=== PATIENT | female | born 1955 | race Caucasian/White ===

== ENCOUNTER 2020-03-26 05:26 | Day surgery (SDC) | payer MEDICARE, OTHER ==
[2020-03-25 08:52] LABS: COVID AG,FIA SOURCE NASOPHARYNGEAL
[~2020-03-26] VITALS: Ht 154.9 cm; Wt 72.7 kg
[~2020-03-26 05:26] MED LIST: CYCLOPENTOLATE HCL 1% 2 ML OPHTHALMIC SOLUTION ONE; KETOROLAC TROMETHAMINE 0.5% 5 ML OPHTHALMIC SOLUTION ONE; MOXIFLOXACIN HCL 0.5% 3 ML OPHTHALMIC SOLUTION ONE; PHENYLEPHRINE HCL 2.5% 2 ML OPHTHALMIC SOLUTION ONE; RINGERS SOLUTION,LACTATED 500 ML IV ONE; TETRACAINE HCL/PF 0.5% 4 ML OPHTHALMIC SOLUTION ONE; TROPICAMIDE 1% 2 ML OPHTHALMIC SOLUTION ONE
[2020-03-26] MEDS ORDERED: MIDAZOLAM HCL 2 MG/2 ML VIAL IVP ONE (05:27)
[2020-03-26] MEDS ORDERED: FentaNYL CITRATE-PF 100 MCG/2 ML VIAL IVP ONE (05:27)
[2020-03-26] MEDS ORDERED: RINGERS SOLUTION,LACTATED 500 ML IV ONE (05:30)
[2020-03-26] MEDS: TROPICAMIDE 1% 2 ML OPHTHALMIC SOLUTION OD SCH ×3 (06:06→06:19)
[2020-03-26] MEDS: TETRACAINE HCL/PF 0.5% 4 ML OPHTHALMIC SOLUTION OD SCH ×3 (06:06→06:20)
[2020-03-26] MEDS: CYCLOPENTOLATE HCL 1% 2 ML OPHTHALMIC SOLUTION OD SCH ×3 (06:06→06:20)
[2020-03-26] MEDS: KETOROLAC TROMETHAMINE 0.5% 5 ML OPHTHALMIC SOLUTION OD SCH ×3 (06:06→06:20)
[2020-03-26] MEDS: MOXIFLOXACIN HCL 0.5% 3 ML OPHTHALMIC SOLUTION OD SCH ×3 (06:06→06:19)
[2020-03-26] MEDS: PHENYLEPHRINE HCL 2.5% 2 ML OPHTHALMIC SOLUTION OD SCH ×3 (06:06→06:19)
[2020-03-26] MEDS ORDERED: EPINEPHrine 1:10,000 [1 MG/10 ML] SYRINGE ONE (16:31)
[2020-03-26] MEDS ORDERED: EPINEPHrine 1:1,000 [1 MG/ML] AMP ONE (16:31)
[2020-03-26] MEDS ORDERED: BALANCED SALT 15 ML OPHTHALMIC IRRIG.SOLN ONE (16:31)
[2020-03-26] MEDS ORDERED: POVIDONE-IODINE 10% 15 ML SOLUTION UD ONE (16:31)
[2020-03-26] MEDS ORDERED: NEOMYCIN/POLYMYXIN B/DEXAMETH 3.5 GM OPHTHALMIC OINTMENT ONE (16:31)
[2020-03-26] MEDS ORDERED: LIDOCAINE/PF 1% 2 ML VIAL ONE (16:31)
[2020-03-26] MEDS ORDERED: PrednisoLONE ACETATE 1% 5 ML OPHTHALMIC SUSPENSION ONE (16:31)
[2020-03-26] MEDS ORDERED: HYALURONATE SODIUM 12 MG/ML 0.8 ML SYRINGE IO ONE (16:31)
== END 2020-03-26 08:25 | disposition home or self-care (01) ==
LOC: SURGERY 05:26
PROVIDERS: ATTEND Ophthalmology
DX: H26.8 Other specified cataract (principal); I10 Essential (primary) hypertension; E66.3 Overweight
CPT/HCPCS: 66984; 87426; 93005; C9803; J0171 ×2; J2250; J3010; J3490 ×2; J7120; V2632

== ENCOUNTER 2020-06-25 05:23 | Day surgery (SDC) | payer MEDICARE, OTHER ==
[2020-06-24 16:11] LABS: COVID AG,FIA SOURCE NASOPHARYNGEAL
[~2020-06-25] VITALS: Ht 154.9 cm; Wt 74.1 kg
[~2020-06-25 05:23] MED LIST changes: +CHOL200016 PO; +PANT40TA54 PO; +SIMV-43 PO
[2020-06-25] MEDS ORDERED: RINGERS SOLUTION,LACTATED 500 ML IV ONE (06:00)
[2020-06-25] MEDS: TETRACAINE HCL/PF 0.5% 4 ML OPHTHALMIC SOLUTION OS SCH ×3 (06:00→06:13)
[2020-06-25] MEDS: CYCLOPENTOLATE HCL 1% 2 ML OPHTHALMIC SOLUTION OS SCH ×3 (06:00→06:13)
[2020-06-25] MEDS: MOXIFLOXACIN HCL 0.5% 3 ML OPHTHALMIC SOLUTION OS SCH ×3 (06:00→06:13)
[2020-06-25] MEDS: TROPICAMIDE 1% 2 ML OPHTHALMIC SOLUTION OS SCH ×3 (06:00→06:13)
[2020-06-25] MEDS: PHENYLEPHRINE HCL 2.5% 2 ML OPHTHALMIC SOLUTION OS SCH ×3 (06:00→06:13)
[2020-06-25] MEDS: KETOROLAC TROMETHAMINE 0.5% 5 ML OPHTHALMIC SOLUTION OS SCH ×3 (06:00→06:13)
[2020-06-25] MEDS ORDERED: MIDAZOLAM HCL 2 MG/2 ML VIAL IVP ONE (12:00)
[2020-06-25] MEDS ORDERED: FentaNYL CITRATE PF 100 MCG/2 ML VIAL IVP ONE (12:00)
[2020-06-25] MEDS ORDERED: NEOMYCIN/POLYMYXIN B/DEXAMETH 3.5 GM OPHTHALMIC OINTMENT ONE (18:11)
[2020-06-25] MEDS ORDERED: TETRACAINE HCL/PF 0.5% 4 ML OPHTHALMIC SOLUTION ONE (18:11)
[2020-06-25] MEDS ORDERED: HYALURONATE SODIUM 12 MG/ML 0.8 ML SYRINGE IO ONE (18:11)
[2020-06-25] MEDS ORDERED: HYALURONATE SOD/CHONDROITIN SOD 0.5 ML VIAL IO ONE (18:11)
[2020-06-25] MEDS ORDERED: EPINEPHrine 1:10,000 [1 MG/10 ML] SYRINGE ONE (18:11)
[2020-06-25] MEDS ORDERED: BALANCED SALT 15 ML OPHTHALMIC IRRIG.SOLN ONE (18:11)
[2020-06-25] MEDS ORDERED: POVIDONE-IODINE 10% 15 ML SOLUTION UD ONE (18:11)
[2020-06-25] MEDS ORDERED: PrednisoLONE ACETATE 1% 5 ML OPHTHALMIC SUSPENSION ONE (18:11)
[2020-06-25] MEDS ORDERED: LIDOCAINE/PF 1% 2 ML VIAL ONE (18:11)
== END 2020-06-25 09:00 | disposition home or self-care (01) ==
LOC: SURGERY 05:23
PROVIDERS: ATTEND Ophthalmology
DX: H26.8 Other specified cataract (principal); I10 Essential (primary) hypertension; E78.00 Pure hypercholesterolemia, unspecified; Z20.822 Contact with and (suspected) exposure to COVID-19; Z79.899 Other long term (current) drug therapy; Z98.41 Cataract extraction status, right eye
CPT/HCPCS: 66984; 87426; 93005; C9803; J0171; J2250; J3010; J3490 ×2; J7120; U0003; V2632